=== PATIENT | male | born 1950 | race American Indian/Alaskan Native ===

== ENCOUNTER 2016-12-19 06:43 | Day surgery (SDC) | payer BC ==
[2016-12-11 10:08] VITALS: BMI 29.0
[2016-12-19] MEDS ORDERED: Propofol 10 mg/ml Inj (20 ML) ONE ×2 (09:12→09:29)
[2016-12-19] MEDS ORDERED: Sodium Chloride 0.9% 1,000 ML IV SCH (09:15)
[2016-12-19 10:43] VITALS: RESP 18; O2SAT 100
[2016-12-19 10:54] VITALS: BP 143/90; PULSE 73; TEMP 98.6
== END 2016-12-19 11:34 | disposition home or self-care (01) ==
LOC: ENDO 06:43
PROVIDERS: ATTEND Specialist
DX: Z12.11 Encounter for screening for malignant neoplasm of colon (principal); D12.3 Benign neoplasm of transverse colon; K64.8 Other hemorrhoids; E11.9 Type 2 diabetes mellitus without complications; I10 Essential (primary) hypertension
CPT/HCPCS: 45385; 82948; 88305; J2704; J7040 ×2